=== PATIENT | male | born 1990 | race African-American/Black ===

== ENCOUNTER 2020-07-18 12:01 | Emergency (ER) | payer SELFPAY ==
[~2020-07-18] VITALS: Ht 188 cm; Wt 86.2 kg
--- NOTE | 2020-07-18 12:10 | NUR ---
ED Nurse Note: Pt ambulated to ED d/t abscess located on the right side of his right calf, states that he first noticed it last night and drained it. Pt is AOx4, VSS, on RA, afebrile on triage.
[2020-07-18 12:23] VITALS: BP 122/71
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
[2020-07-18] MEDS ORDERED: IBUPROFEN600 M1 ORAL (12:45)
[2020-07-18] MEDS ORDERED: Bactrim-DS 1 tab ORAL ONE (12:45)
[2020-07-18] MEDS ORDERED: BACTRIM DS TAB1 EAC1 ORAL (12:45)
[2020-07-18] MEDS ORDERED: BACITRACIN15 GM TOPIC (12:45)
[2020-07-18] MEDS ORDERED: Bacitracin Oint UD TOPIC ONE (12:45)
--- NOTE | 2020-07-18 12:50 | NUR ---
ED Nurse Note: override hydrogen peroxide in pyxis. ERMD aware.
[2020-07-18 13:00] VITALS: BP 120/70
[2020-07-18] MEDS ORDERED: Hydrogen Peroxide 473ml Bottle TOPIC ONE (13:00)
--- NOTE | 2020-07-18 13:00 | NUR ---
ER DISCHARGE NOTE: Patient is cleared to be discharged per ERMD, pt is aox4, on room air, with stable vital signs. pt was given dc and prescription instructions, pt was able to verbalize understanding, pt id band removed. pt is able to ambulate with steady gait. pt took all belongings.
== END 2020-07-18 13:00 | disposition home or self-care (01) ==
LOC: EMR 12:37
DX: L02.416 Cutaneous abscess of left lower limb (principal); L03.115 Cellulitis of right lower limb; S00.81XA Abrasion of other part of head, initial encounter; X58.XXXA Exposure to other specified factors, initial encounter; Y92.9 Unspecified place or not applicable
CPT/HCPCS: 99282